=== PATIENT | female | born 1950 | race Hispanic/Latino ===

== ENCOUNTER 2018-04-09 10:00 | Outpatient (CLI) | payer MEDICARE, MEDICAID | END 2018-04-09 10:01 | disposition home or self-care (01) | LOC: RAD 10:00 ==

== ENCOUNTER 2018-04-16 08:43 | Outpatient (CLI) | payer MEDICARE, MEDICAID | END 2018-04-16 08:44 | disposition home or self-care (01) | LOC: RAD 08:43 ==